=== PATIENT | male | born 1950 | race Hispanic/Latino ===

== ENCOUNTER → 2020-02-18 | Day surgery (SDC) | payer MEDICARE, OTHER ==
[2020-02-15 10:56] LABS: BASOPHILS % 0.5 % (0.0-1.0); EOSINOPHILS # (AUTO) 0.1 (0.0-0.4); HEMATOCRIT 48.6 % (38.2-49.6); HEMOGLOBIN 15.8 g/dL (14.0-18.0); LYMPHOCYTES # (AUTO) 1.8 (1.0-3.2); LYMPHOCYTES % 28.4 % (18.0-39.1); MEAN CORPUSCULAR HEMOGLOBIN 30.4 pg (28-32); MEAN CORPUSCULAR HGB CONC 32.5 g/dL (31-35); MEAN CORPUSCULAR VOLUME 93.5 fL (81-99); MONOCYTES # (AUTO) 0.6 (0.2-0.8); MONOCYTES % 9.5 % (4.4-11.3); NEUTROPHILS # (AUTO) 3.8 (2.1-6.9); NEUTROPHILS % 59.3 % (38.7-80.0); PLATELET COUNT 150 x10e3/uL (140-360); RED CELL DISTRIBUTION WIDTH 14.8 % (11.7-14.4)
--- NOTE | 2020-02-15 11:10 | Diagnostic Imaging Report ---
TECHNIQUE: Frontal and lateral views of the chest. INDICATION: ^PRE-OP KIDNEY STONE ^[id number] ^[id number] ^PT IS PRE-OP TESTING COMPARISON: None. IMPRESSION: Lines and hardware: None. Heart and mediastinum: Tortuous aorta. Otherwise, unremarkable cardiomediastinal silhouette. Lungs and pleura: No focal airspace consolidation. No pleural effusion. No pneumothorax. Soft tissues and bones: No acute bony abnormality. Signed by: Jese Squires MD on 02/15/2020 11:06 AM
[2020-02-15 11:13] LABS: ANION GAP 14.4 mmol/L (8-16); BLOOD UREA NITROGEN 14 mg/dL (7-26); CARBON DIOXIDE 21 mmol/L (22-29); CHLORIDE 111 mmol/L (98-107); CREATININE, SERUM 1.14 mg/dL (0.72-1.25); POTASSIUM 4.4 mmol/L (3.5-5.1); SODIUM 142 mmol/L (136-145)
[2020-02-15 11:14] LABS: ALANINE AMINOTRANSFERASE 13 IU/L (0-55); ALBUMIN 3.7 g/dL (3.5-5.0); ALBUMIN/GLOBULIN RATIO 0.9 (0.8-2.0); ALKALINE PHOSPHATASE 73 IU/L (40-150); BUN/CREATININE RATIO 12 (6-25); CALCIUM 8.9 mg/dL (8.4-10.2); EST GLOMERULAR FILTRATION RATE > 60 ML/MIN (60-); GLUCOSE 101 mg/dL (74-118)
[~2020-02-18] MED LIST: B&O 60MG R/S 60 MG SUPP PR ONE; CEFTRIAXONE SOD 1 GM/NS 50 ML 50 ML IV ONE; DEXAMETHASONE SOD PHOS INJ 4 MG/ML VIAL ONE; ETOMIDATE 2 MG/ML 10 ML INJ IV ONE; IOPAMIDOL 300MG/ML 50ML INFUS..BTL IV ONE; LIDOCAINE HCL 2% LOCAL INJ 5 ML SDV VIAL INJ ONE; LISINOPRIL10 MG PO; ONDANSETRON HCL INJ 2MG/ML 2ML 2 MG/ML VIAL ONE; SEVOFLURANE INHAL SOLN 250 ML PEN BTL ONE; TESTOSTERO200 MG/1 M IM
[2020-02-18 11:05] VITALS: BP 127/74
--- NOTE | 2020-02-20 02:10 | Operative Report ---
DATE OF PROCEDURE: 02/18/2020 SURGEON: Travis Dee MD POSTOPERATIVE DIAGNOSES: 1. Nephrolithiasis. 2. Chronic renal insufficiency. POSTOPERATIVE DIAGNOSES: 1. Nephrolithiasis. 2. Chronic renal insufficiency. OPERATIONS PERFORMED: 1. Cystourethroscopy with bilateral ureteral catheterization and retrograde ureteropyelography (separate procedure performed to the chronic renal insufficiency). 2. Interpretation of retrograde ureteropyelography, no radiologist present. 3. Supervision of fluoroscopy, no radiologist present. 4. Left ureteroscopy with stone fragmentation and placement of stent (separate procedure performed to the left nephrolithiasis). 5. Urological services with supervision and interpretation of ureteroscopy, no radiologist present. ANESTHESIA: General. COMPLICATIONS: None. CLINICAL SUMMARY: Denny Arias is a 69-year-old man with a stone and renal insufficiency. He was brought for the above procedures. The patient is too big and too heavy for extracorporeal shockwave lithotripsy table. He is aware of the risks of bleeding, infection, injury to adjacent structures, need for additional procedures, and he understands about the temporary indwelling ureteral stent that requires followup and removal. He understood these risks and elected to proceed. This procedure was performed despite the COVID-19 situation. This is the fact that the patient has a stone and renal insufficiency needs management and evaluation. OPERATIVE PROCEDURE IN DETAIL: Informed consent was verified. Denny Arias was properly identified and taken to the operating room, placed on the cystoscopy table in supine position. Anesthesia was uneventfully begun. The patient was then carefully and gently repositioned in the dorsal lithotomy position with all pressure points well padded. His genitalia were prepared and draped in usual sterile fashion. The cystoscope sheath with the visual obturator in place was atraumatically inserted into the patient's urethra. It was guided unremarkable distal urethra to the bulbar region where there was some narrowing of the urethra, but this was not a significant stricture disease as it probably did not affect the patient's uroflow. We went through the normal sphincteric region, went through the prostate bed, which was significant for visual obstructing BPH. We then went into the patient's bladder and drained it. Panendoscopy revealed trabeculations, but no tumors, no stones, no diverticula. Normally positioned configured ureteral orifices were identified. Ureteral catheter was used to cannulate the right ureter and retrograde ureteropyelography performed. It was then inserted in the left ureter and retrograde ureteral pyelograms were performed. Interpretation of retrograde ureteropyelography contrast was instilled in retrograde fashion bilaterally. On the right-hand side, there were no tumors, no stones, no diverticula. Unobstructed drainage was observed on the left hand side. There was a filling defect in a midpole calyx, which corresponded to the stone noted on CT, but there were no suspicious lesions. Unobstructed drainage was observed fluoroscopically bilaterally. The guidewire was then placed in the left ureter and guided to the level of the patient's kidney. The flexible ureteroscope was then brought up over the guidewire and guided to the level of the patient's kidney. We identified the stone. We grasped the stone. The grasping of the stone actually fragmented into two pieces. We grasped one piece and extracted atraumatically. We then reintroduced the ureteroscope, grasped the 2nd small piece and extracted as well. No additional stones remained upon careful panendoscopy, the ureter was also unremarkable. With subsequent fluoroscopic guidance, a left-sided indwelling ureteral stent was then placed. It was coiled the patient's kidneys as well as the patient's bladder. The retaining suture was cut short. The patient's bladder was drained. Cystoscope was withdrawn. Belladonna and opium suppository were placed revealing a 40 g prostate that is smooth, nonfluctuant without any nodules. The patient was then uneventfully reversed from anesthesia and taken to recovery in stable condition. There were no complications procedure. He tolerated procedure well. PLANS: Will be to return the patient to the operating room in several weeks to remove his stent, perform left ureteroscopy and hopefully, render the patient stent free and stone free. Ongoing urological followup will then be performed including to manage and evaluate his BPH as well as have the patient undergo metabolic stone workup and long-term stone prevention management. Travis Dee MD [place]/MODL /[id number]
== END | disposition home or self-care (01) ==
LOC: OR 08:13
PROVIDERS: ATTEND Urology
DX: N20.0 Calculus of kidney (principal); I12.9 Hypertensive chronic kidney disease with stage 1 through stage 4 chronic kidney disease, or unspecified chronic kidney disease; N18.9 Chronic kidney disease, unspecified; N40.1 Benign prostatic hyperplasia with lower urinary tract symptoms; N13.8 Other obstructive and reflux uropathy; G47.33 Obstructive sleep apnea (adult) (pediatric); F43.10 Post-traumatic stress disorder, unspecified; R00.1 Bradycardia, unspecified
CPT/HCPCS: 36415; 52332; 52352; 71046; 74420; 80053; 83970; 84403; 84550; 85025; 87635; 88300; 93005; C1766; C1769; C2617; J0696; J1100; J2001; J2405; Q9967

== ENCOUNTER → 2020-04-12 | Day surgery (SDC) | payer MEDICARE, OTHER ==
[2020-04-07 10:53] LABS: BASOPHILS % 0.4 % (0.0-1.0); EOSINOPHILS # (AUTO) 0.2 (0.0-0.4); EOSINOPHILS % 2.2 % (0.0-6.0); HEMATOCRIT 52.2 % (38.2-49.6); LYMPHOCYTES # (AUTO) 1.6 (1.0-3.2); LYMPHOCYTES % 22.7 % (18.0-39.1); MEAN CORPUSCULAR HEMOGLOBIN 29.9 pg (28-32); MEAN CORPUSCULAR HGB CONC 32.6 g/dL (31-35); MEAN CORPUSCULAR VOLUME 91.7 fL (81-99); MONOCYTES # (AUTO) 0.6 (0.2-0.8); MONOCYTES % 8.7 % (4.4-11.3); NEUTROPHILS # (AUTO) 4.5 (2.1-6.9); NEUTROPHILS % 65.7 % (38.7-80.0); PLATELET COUNT 150 x10e3/uL (140-360); RED BLOOD COUNT 5.69 x10e6/uL (4.3-5.7); RED CELL DISTRIBUTION WIDTH 13.7 % (11.7-14.4)
[~2020-04-12] MED LIST changes: +GENTAMICIN 80MG/NS 100 ML 100 ML IV ONE; +PROPOFOL IV EMULSION 10 MG/ML 20 ML VIAL ONE
[2020-04-12 14:53] VITALS: BP 141/78
--- NOTE | 2020-05-01 05:41 | Operative Report ---
DATE OF PROCEDURE: 04/12/2020 SURGEON: Travis Dee MD PREOPERATIVE DIAGNOSES: 1. Left nephrolithiasis. 2. Left indwelling ureteral stents. POSTOPERATIVE DIAGNOSES: 1. Left nephrolithiasis. 2. Left indwelling ureteral stents. OPERATIONS PERFORMED: Note these were all staged procedures as part of multistaged, multistep process in managing patient's urolithiasis. 1. Cystourethroscopy with complicated removal of left indwelling ureteral stent (separate procedure performed for the diagnosis of stent done with separate scope). 2. Left ureteroscopy with stone manipulation (separate procedure performed for the left nephrolithiasis). 3. Radiological services with supervision and interpretation of ureteroscopy, no radiologist present. 4. Interpretation of retrograde ureteropyelography, no radiologist present. 5. Supervision of fluoroscopy, no radiologist present. ANESTHESIA: General. COMPLICATIONS: None. CLINICAL SUMMARY: Denny Arias is a 69-year-old man. He has a stent. He has had previous stone management. He is brought for the above procedures. He is aware of the risks of bleeding, infection, injury to adjacent structures, need for additional procedures and elected to proceed. PROCEDURE IN DETAIL: Informed consent was verified. Denny Arias was properly identified, taken to the operating room, placed on the cystoscopy table in supine position. Anesthesia was uneventfully begun. The patient was then carefully and gently repositioned in the dorsal lithotomy position with all pressure points well padded. His genitalia were prepared and draped in usual sterile fashion. The cystoscope sheath with the visual obturator in place was atraumatically inserted. The patient's urethra was guided, unremarkable urethra through some wide caliber bands in the bulbar region through the normal sphincteric region into the patient's prostate bed, which was significant for visually obstructing BPH and into the patient's bladder with no suspicious mucosal lesions. There were no tumors. There was a partially encrusted stent emerging from the left ureteral orifice. A guidewire was then placed alongside the stent and guided to the level of the patient's kidney. The stent was then grasped completely, removed and discarded. Semi-rigid ureteroscope was then placed alongside the guidewire into the distal ureter. There were no stones, no suspicious lesions, and there were no strictures. The flexible ureteroscope was then placed over the guidewire and guided to the level of the patient's kidney. 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 This fine sand was manipulated by irrigating and loosening it from the mucosa, so that it may easily pass, but there were no stones large enough to be grasped. We carefully examined the ureter as we exited, it exhibited no stones, no diverticula. No suspicious lesions. The patient's bladder was drained. Cystoscope was withdrawn. Belladonna and Opium suppositories were placed revealing a 30 g prostate, that is smooth, non-fluctuant without any nodules. The patient was then uneventfully reversed from anesthesia and taken to recovery room in stable condition. There were no complications to the procedure. He tolerated the procedure well. Explicit postop instructions were given. We will follow the patient up in the office and of course on a long-term basis. MD DOLLY Greenwood/ALEX /[id number]
== END | disposition home or self-care (01) ==
LOC: OR 10:25
PROVIDERS: ATTEND Urology
DX: N40.1 Benign prostatic hyperplasia with lower urinary tract symptoms (principal); R39.14 Feeling of incomplete bladder emptying; N20.0 Calculus of kidney; E29.1 Testicular hypofunction; Z96.0 Presence of urogenital implants; E66.9 Obesity, unspecified; N47.1 Phimosis; R80.9 Proteinuria, unspecified; Z87.442 Personal history of urinary calculi; N52.9 Male erectile dysfunction, unspecified; N18.9 Chronic kidney disease, unspecified; Z68.42 Body mass index [BMI] 45.0-49.9, adult; G47.30 Sleep apnea, unspecified; I10 Essential (primary) hypertension; R42 Dizziness and giddiness; Z01.812 Encounter for preprocedural laboratory examination; Z11.59 Encounter for screening for other viral diseases
CPT/HCPCS: 36415; 52352; 74420; 85025; C1769; J0696; J1100; J1580; J2001; J2405; J2704; Q9967; U0002

== ENCOUNTER → 2020-11-24 | Outpatient (CLI) | payer MEDICARE ==
[~2020-11-24] MED LIST changes: -B&O 60MG R/S 60 MG SUPP PR ONE; -CEFTRIAXONE SOD 1 GM/NS 50 ML 50 ML IV ONE; -DEXAMETHASONE SOD PHOS INJ 4 MG/ML VIAL ONE; -ETOMIDATE 2 MG/ML 10 ML INJ IV ONE; -GENTAMICIN 80MG/NS 100 ML 100 ML IV ONE; -IOPAMIDOL 300MG/ML 50ML INFUS..BTL IV ONE; -LIDOCAINE HCL 2% LOCAL INJ 5 ML SDV VIAL INJ ONE; -ONDANSETRON HCL INJ 2MG/ML 2ML 2 MG/ML VIAL ONE; -PROPOFOL IV EMULSION 10 MG/ML 20 ML VIAL ONE; -SEVOFLURANE INHAL SOLN 250 ML PEN BTL ONE
== END ==
LOC: CT 14:13
PROVIDERS: ATTEND Urology
DX: N20.0 Calculus of kidney (principal)
CPT/HCPCS: 74176

== ENCOUNTER 2021-02-28 09:05 | Inpatient (IN) | payer MEDICARE ==
[2021-02-23 15:56] LABS: BASOPHILS % 0.4 % (0.0-1.0); EOSINOPHILS # (AUTO) 0.2 (0.0-0.4); EOSINOPHILS % 2.6 % (0.0-6.0); HEMATOCRIT 53.5 % (38.2-49.6); HEMOGLOBIN 17.6 g/dL (14.0-18.0); LYMPHOCYTES # (AUTO) 2.2 (1.0-3.2); LYMPHOCYTES % 24.4 % (18.0-39.1); MEAN CORPUSCULAR HEMOGLOBIN 30.3 pg (28-32); MEAN CORPUSCULAR HGB CONC 32.9 g/dL (31-35); MEAN CORPUSCULAR VOLUME 92.1 fL (81-99); MONOCYTES # (AUTO) 0.8 (0.2-0.8); MONOCYTES % 9.3 % (4.4-11.3); NEUTROPHILS # (AUTO) 5.7 (2.1-6.9); PLATELET COUNT 150 x10e3/uL (140-360); RED BLOOD COUNT 5.81 x10e6/uL (4.3-5.7); RED CELL DISTRIBUTION WIDTH 14.4 % (11.7-14.4)
[2021-02-28] VITALS (7 sets, daily range): BP systolic 138–148; BP diastolic 76–96
[~2021-02-28] VITALS: Ht 180.3 cm; Wt 156.5 kg
[2021-02-28] MEDS ORDERED: SODIUM CHLORIDE 0.9% 1000ML 1,000 ML ONE (09:47)
[2021-02-28] MEDS ORDERED: CEFTRIAXONE 1 GM VIAL ONE (09:48)
[2021-02-28] MEDS ORDERED: GENTAMICIN 80MG/NS 100 ML 200 ML IV ONE (09:48)
[2021-02-28] MEDS ORDERED: SODIUM CHLORIDE 0.9% 50ML 100 ML ONE (09:48)
[2021-02-28] MEDS ORDERED: IOPAMIDOL 300MG/ML 50ML INFUS..BTL IV ONE (10:07)
[2021-02-28] MEDS ORDERED: B&O 60MG R/S 60 MG SUPP PR ONE (10:08)
[2021-02-28] MEDS ORDERED: NEOSTIGMINE 1 MG/ML 10ML VIAL ONE (12:04)
[2021-02-28] MEDS ORDERED: POVIDONE IODINE 0.05% 0.05 % ML PO ONE (12:04)
[2021-02-28] MEDS ORDERED: LIDOCAINE HCL 2% LOCAL INJ 5 ML SDV VIAL INJ ONE (12:04)
[2021-02-28] MEDS ORDERED: SUCCINYLCHOLINE CHLORIDE 20 MG/ML 10ML VIAL ONE (12:04)
[2021-02-28] MEDS ORDERED: EPHEDRINE SULFATE INJ 50 MG/ML VIAL ONE (12:04)
[2021-02-28] MEDS ORDERED: DEXAMETHASONE SOD PHOS INJ 4 MG/ML VIAL ONE (12:04)
[2021-02-28] MEDS ORDERED: GLYCOPYRROLATE INJ 0.2 MG/ML VIAL ONE (12:04)
[2021-02-28] MEDS ORDERED: ONDANSETRON HCL INJ 2MG/ML 2ML 2 MG/ML VIAL ONE (12:04)
[2021-02-28] MEDS ORDERED: SEVOFLURANE INHAL SOLN 250 ML PEN BTL ONE (12:04)
[2021-02-28] MEDS ORDERED: PROPOFOL IV EMULSION 10 MG/ML 20 ML VIAL ONE (12:04)
[2021-02-28] MEDS ORDERED: ROCURONIUM BROMIDE 10 MG/ML 5ML VIAL IV ONE (12:04)
[2021-02-28] MEDS ORDERED: DIPHENHYDRAMINE HCL 25 MG CAP PO PRN (13:00)
[2021-02-28] MEDS ORDERED: PHENAZOPYRIDINE HCL 100 MG TAB PO PRN (13:00)
[2021-02-28] MEDS ORDERED: ONDANSETRON HCL INJ 2MG/ML 2ML 2 MG/ML VIAL IV PRN (13:00)
[2021-02-28] MEDS ORDERED: FENTANYL CITRATE/PF 100MCG/2 ML INJ ONE (13:47)
[2021-02-28 14:14] LABS: BASOPHILS % 0.3 % (0.0-1.0); EOSINOPHILS # (AUTO) 0.2 (0.0-0.4); EOSINOPHILS % 1.6 % (0.0-6.0); HEMATOCRIT 51.9 % (38.2-49.6); HEMOGLOBIN 16.9 g/dL (14.0-18.0); LYMPHOCYTES # (AUTO) 1.6 (1.0-3.2); LYMPHOCYTES % 17.2 % (18.0-39.1); MEAN CORPUSCULAR HEMOGLOBIN 30.5 pg (28-32); MEAN CORPUSCULAR HGB CONC 32.6 g/dL (31-35); MEAN CORPUSCULAR VOLUME 93.7 fL (81-99); MONOCYTES # (AUTO) 0.5 (0.2-0.8); MONOCYTES % 4.8 % (4.4-11.3); NEUTROPHILS % 75.7 % (38.7-80.0); PLATELET COUNT 136 x10e3/uL (140-360); RED BLOOD COUNT 5.54 x10e6/uL (4.3-5.7); RED CELL DISTRIBUTION WIDTH 14.4 % (11.7-14.4)
[2021-02-28 14:28] LABS: ANION GAP 13.5 mmol/L (8-16); CALCIUM 7.7 mg/dL (8.4-10.2); CREATININE, SERUM 1.33 mg/dL (0.72-1.25); POTASSIUM 4.5 mmol/L (3.5-5.1)
[2021-02-28] MEDS: DOCUSATE SODIUM 100 MG CAP PO SCH (16:38)
[2021-02-28] MEDS: ACETAMINOPHEN/CODEINE 300MG - 30MG TAB PO PRN ×2 (16:38→22:45)
[2021-02-28] MEDS: D5.45%NS/KCL 20MEQ 1,000 ML IV SCH (16:45)
[2021-03-01] VITALS (10 sets, daily range): BP systolic 125–147; BP diastolic 75–98
[2021-03-01] MEDS: D5.45%NS/KCL 20MEQ 1,000 ML IV SCH ×2 (00:45→05:00)
[2021-03-01 04:44] LABS: BASOPHILS % 0.3 % (0.0-1.0); EOSINOPHILS % 0.2 % (0.0-6.0); HEMATOCRIT 49.5 % (38.2-49.6); HEMOGLOBIN 16.4 g/dL (14.0-18.0); LYMPHOCYTES % 8.8 % (18.0-39.1); MEAN CORPUSCULAR HEMOGLOBIN 30.5 pg (28-32); MEAN CORPUSCULAR HGB CONC 33.1 g/dL (31-35); MONOCYTES # (AUTO) 0.9 (0.2-0.8); MONOCYTES % 7.9 % (4.4-11.3); NEUTROPHILS # (AUTO) 9.2 (2.1-6.9); NEUTROPHILS % 82.5 % (38.7-80.0); PLATELET COUNT 143 x10e3/uL (140-360); RED BLOOD COUNT 5.38 x10e6/uL (4.3-5.7); RED CELL DISTRIBUTION WIDTH 14.1 % (11.7-14.4)
[2021-03-01 05:08] LABS: ANION GAP 12.8 mmol/L (8-16); CALCIUM 7.9 mg/dL (8.4-10.2); CREATININE, SERUM 1.25 mg/dL (0.72-1.25); POTASSIUM 4.8 mmol/L (3.5-5.1)
[2021-03-01] MEDS: DOCUSATE SODIUM 100 MG CAP PO SCH ×2 (08:00→17:07)
[2021-03-01] MEDS: CEFTRIAXONE 1 GM in SODIUM CHLORIDE 0.9% 50ML 50 ML IV SCH (08:01)
[2021-03-01] MEDS ORDERED: HYDRALAZINE HCL 25 MG TAB PO PRN (08:15)
[2021-03-01] MEDS: SODIUM CHLORIDE 0.9% 1000ML 1,000 ML IV SCH ×2 (09:13→17:07)
[2021-03-01] MEDS: LISINOPRIL 10 MG TAB PO SCH (09:13)
[2021-03-01] MEDS: ACETAMINOPHEN/CODEINE 300MG - 30MG TAB PO PRN ×2 (10:30→19:31)
[2021-03-01] MEDS: B&O 60MG R/S 60 MG SUPP PR PRN ×2 (11:30→21:56)
[2021-03-02 00:33] VITALS: BP 148/81
[2021-03-02 04:00] VITALS: BP 130/85
[2021-03-02] MEDS: SODIUM CHLORIDE 0.9% 1000ML 1,000 ML IV SCH (04:14)
[2021-03-02] MEDS: ACETAMINOPHEN/CODEINE 300MG - 30MG TAB PO PRN ×2 (04:21→12:00)
[2021-03-02 04:40] LABS: BASOPHILS # (AUTO) 0.1 (0.0-0.1); BASOPHILS % 0.5 % (0.0-1.0); EOSINOPHILS # (AUTO) 0.4 (0.0-0.4); EOSINOPHILS % 3.8 % (0.0-6.0); HEMATOCRIT 55.3 % (38.2-49.6); HEMOGLOBIN 17.8 g/dL (14.0-18.0); LYMPHOCYTES # (AUTO) 1.8 (1.0-3.2); LYMPHOCYTES % 18.8 % (18.0-39.1); MEAN CORPUSCULAR HGB CONC 32.2 g/dL (31-35); MEAN CORPUSCULAR VOLUME 93.3 fL (81-99); MONOCYTES # (AUTO) 0.9 (0.2-0.8); MONOCYTES % 9.3 % (4.4-11.3); NEUTROPHILS # (AUTO) 6.3 (2.1-6.9); NEUTROPHILS % 67.2 % (38.7-80.0); PLATELET COUNT 118 x10e3/uL (140-360); RED BLOOD COUNT 5.93 x10e6/uL (4.3-5.7); RED CELL DISTRIBUTION WIDTH 14.5 % (11.7-14.4)
[2021-03-02 06:39] LABS: ANION GAP 17.5 mmol/L (8-16); CALCIUM 8.3 mg/dL (8.4-10.2); CREATININE, SERUM 1.22 mg/dL (0.72-1.25); POTASSIUM 4.5 mmol/L (3.5-5.1)
[2021-03-02 08:19] VITALS: BP 132/73
[2021-03-02 08:47] VITALS: BP 132/73
[2021-03-02] MEDS: DOCUSATE SODIUM 100 MG CAP PO SCH (09:00)
[2021-03-02] MEDS: CEFTRIAXONE 1 GM in SODIUM CHLORIDE 0.9% 50ML 50 ML IV SCH (09:00)
[2021-03-02] MEDS: LISINOPRIL 10 MG TAB PO SCH (09:00)
[2021-03-02] MEDS ORDERED: LEVOFLOXACIN250 MG PO (11:11)
[2021-03-02] MEDS ORDERED: CELEBREX100 MG PO (11:12)
== END 2021-03-02 12:26 | disposition home or self-care (01) | DRG 713 ==
LOC: OR 09:05 → PACU V 12:53 → MED/SURG 14:10
PROVIDERS: ADMIT Internal Medicine; ATTEND Internal Medicine
PROC: BT141ZZ Fluoroscopy of Kidneys, Ureters and Bladder using Low Osmolar Contrast (ICD-10-PCS; 2021-02-28)
PROC: 0T7D8ZZ Dilation of Urethra, Via Natural or Artificial Opening Endoscopic (ICD-10-PCS; principal; 2021-02-28 11:44)
PROC: 0V508ZZ Destruction of Prostate, Via Natural or Artificial Opening Endoscopic (ICD-10-PCS; 2021-02-28 11:44)
DX: N40.1 Benign prostatic hyperplasia with lower urinary tract symptoms (principal); N13.8 Other obstructive and reflux uropathy; Z68.42 Body mass index [BMI] 45.0-49.9, adult; R33.8 Other retention of urine; Z87.442 Personal history of urinary calculi; I10 Essential (primary) hypertension; F43.10 Post-traumatic stress disorder, unspecified; E66.01 Morbid (severe) obesity due to excess calories; N35.912 Unspecified bulbous urethral stricture, male; Z20.822 Contact with and (suspected) exposure to COVID-19
CPT/HCPCS: 36415; 71046; 74420; 80048; 83735; 85025; 88305; 93005; 96361; C1758; J0330; J0696; J1100; J1580; J2001; J2405; J2710; J3010; J7030; U0002